=== PATIENT | female | born 1990 | race Hispanic/Latino ===

== ENCOUNTER 2019-05-10 17:52 | Day surgery (SDC) | payer OTHER ==
[2019-05-10 18:39] VITALS: BMI 32.4
--- NOTE | 2019-05-10 19:25 | PDOC.FPROB ---
FMR OB H&P: HPI - History of Present Illness Chief Complaint: Elevated BP at [facility] Indentification: History of Present Illness: Mrs. Castaneda is a 28 y/o at 36W GA who presents to L&D from [facility] because she had elevated blood pressures. She recorded several BP readings with the systolic pressures at 145, 136 and 137 mmHg earlier today, prompting her presentation to L&D. She is Lao-speaking only, so an geometry tutor had to be used for the majority of the evaluation. Mrs. Castaneda states that she has had Gestational Hypertension in the past, with her first child, but not with her second. In the intrapartum period, she thinks that she may have had high blood pressure then as well. She admits to a recent headaches, itchy eyes, and nasal congestion. and is concerned that she may have the flu. She denies a worsening headache, changes in vision, swelling in her hands or feet or feelings of numbness or tingling. She states that she can feel her baby moving appropriately , and she has not had any syncopal episodes, N/V/D, abdominal pain, dysuria, loss of fluid or bloody discharge. Primary Care Physician: Dr. Jose Guadalupe Mendez FMR OB H&P: Current - Care : 3 Para: 2 Gestational age: 36W Due date: 06/13/19 Dating Criteria: LMP, c/w 30.2US Total weight gain: 16 LBS - OB Labs Blood type: A RH: positive Antibody Screen: negative HIV: negative RPR: negative HepBsAg: negative Rubella: immune Quad screen: unknown Urine drug screen: not done Gonorrhea: negative Chlamydia: negative Pap Smear: Normal 1 hour gtt: 2 hr gtt normal. no elevater sugars A1c: 5.1 GBS: unknown H&H: hgb 11.5 on 04/21 Platelets: 219 on 04/21 Additional labs: 04/21 pr/cr ratio .142 03/31 24hr urine protein 231 TSH 2.1 - Additional Ultrasound Additional: 30.4 week sono- hadlock 60 percent. placenta posterior. done with [facility] 32.2 week visualized 4 chamber heart. everything else normal. 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 - Surgical History Sx History: Unable to obtain - Social History Social History: Denies x3. - Family History Family History: Unable to obtain FMR OB H&P: Medications - Current Home Medications: Medication Instructions Recorded Confirmed Type Aspirin [Ecotrin Low Strength] 1 tab PO DAILY 05/10/19 05/10/19 History Docosahexanoic Acid [ DHA] 1 tab PO DAILY 05/10/19 05/10/19 History Allergies/Adverse Reactions: Allergies Allergy/AdvReac Type Severity Reaction Status Date / Time No Known Allergies Allergy Unverified 05/10/19 18:41 FMR OB H&P: ROS - Review of Systems General: denies: fever/chills, night sweats Eyes: reports: others ("Itchy eyes"). denies: eye pain, vision changes ENT: reports: nasal congestion, sinus pain/pressure. denies: rhinorrhea, frequent nose bleed, ringing in ears, sore throat Cardiovascular: denies: chest pain, edema Respiratory: reports: congestion. denies: cough, shortness of breath Gastrointestinal: denies: abdominal pain, nausea, vomiting, diarrhea, constipation Genitourinary (Female): denies: dysuria, hematuria, polyuria, vaginal discharge , vaginal bleeding Musculoskeletal: denies: pain, arthritis/arthralgias Neurologic: denies: numbness, syncope, weakness FMR OB H&P: Vital Signs - Maternal Vital signs: HR (82) BP (135/81) RR (18) O2 (100% - Room) - Heart Tones Baseline: 145 Variability: moderate Acceleration: present Deceleration: absent FMR OB H&P: Physical Exam - Physical Exam General: NAD, awake, alert and oriented HEENT: normocephalic and atraumatic, PERRLA, EOMI, MMM, conjunctiva clear, no scleral icterus, grossly normal vision, grossly normal hearing, normal nasal mucosa, oropharynx clear, good dention Neck: supple, FROM, trachea midline, no LAD Chest: non-tender to palpation, no lesions Breast: symmetric, no nipple discharge Heart: RRR, normal S1/S2, no murmurs/rubs/gallops, pulses present, no edema General: CTAB, no respiratory distress, good air movement, no rales/rhonchi, no wheezing, no retractions Abdomen: gravid, non-tender, no masses Musculoskeletal: pulses present, FROM in all four extremities, no misalignment/ asymmetry, no atrophy Neurological: sensation to pain,touch and proprioception grossly normal, no tremor, no focal deficit Skin: no rash, no jaundice Lymphatic: no unusual bruising or bleeding, no purpura, no petechia, no LAD Psychiatric: intact recent and remote memory, good judgement and insight, normal mood and affect FMR OB H&P: A/P - Problem List (1) Gestational hypertension Current Visit: Yes Status: Acute Code(s): O13.9 - GESTATIONAL HTN W/O SIGNIFICANT PROTEINURIA, UNSP TRIMESTER (2) Intrauterine Current Visit: Yes Status: Acute Code(s): Z34.90 - ENCNTR FOR SUPRVSN OF NORMAL , UNSP, UNSP TRIMESTER Disposition: 1. Gestational Hypertension -Patient's recently elevated BP readings in the 140s are concerning - r/o Pre- Eclampsia -Patient admits to headaches, sinus congestion, watery eyes -Patient does not complain of visual disturbances, increased LE edema -Physical exam unremarkable, BP currently stable at 135/81 mmHg -CBC: Pending -CMP: Pending -Urine Protein / Cr Ratio: Pending -Influenza Antigen: Pending -Currently being monitored in L&D 2. Intrauterine -Recent decline in [place] percentiles concerning -BPP: Pending Code: Full Diet: NPO Activity: Bed Rest DVT PPx: Not Required Dispo: Observe patient in L&D for 4H with BP checks Q15M. Await lab results to assess for proteinuria and/or end-organ damage. DC home if BP < 160 mmHg. Expected LOS < 24H Discussion: Date/Time: 05/10/191922 This H&P was discussed with Dr. Webster PGY-3 and the attending, Dr. Napoles who agree with the above documentation and plan. At this time we ordered CBC, CMP, uric acid, urine pr/cr ratio. Will assess for any lab abnormalities. BPP ordered as well. Will monitor for 4 hours. Addendum - Attending - Attending Attestation Date/Time: 05/10/191957 I personally evaluated the patient and discussed the management with Dr. Gonzalez and Dr. Webster I agree with the History, Examination, Assessment and Plan documented above with any addition or exceptions noted below. Sent for evaluation of superimposed preeclampsia on cHTN. BP stable. No severe range over the course of 4.5 hours of monitoring. Only 3 mild range readings. Asymptomatic. Reactive NST. BPP 03/02. Platelets continue to downtend and therefore patient at risk for gthrombocytopenia. Continue to trend labs weekly. Continue daily BP monitoring. Has repeat growth next week. Noted to have decreased growth from 30 wks to 35 wks. ER precautions discussed. Patient has follow up appt at [facility] and with MFM next week. Ok to d/c to home. Paige
[2019-05-10] MEDS ORDERED: hydrALAZINE 20 MG/ML VIAL SLOW IVP PRN (19:34)
[2019-05-10 20:14] LABS: #Lymphocytes 2.2 thou/uL (1.20-3.40); #Monocytes 0.4 thou/uL (0.11-0.59); #Neutrophils 6.4 thou/uL (1.40-6.50); %Eosinophils 0.4 % (0.0-10.0); %Lymphocytes 23.8 % (21.0-51.0); %Monocytes 4.7 % (0.0-10.0); Hemoglobin 11.3 g/dL (12.0-16.0); Mean Corpuscular HGB CONC 34.6 g/dL (32.0-36.0); Mean Corpuscular Hemoglobin 29.2 pg (27.0-31.0); Mean Corpuscular Volume 84.5 fL (78.0-98.0); Mean Platelet Volume 10.8 fL (7.4-10.4); Platelet Count 166 thou/uL (130-400); RBC Distribution Width 14.6 % (11.5-14.5); Red Blood Cell (RBC) Count 3.85 mill/uL (4.20-5.40)
[2019-05-10 20:38] LABS: ALT (SGPT) 9 U/L (8-55); AST (SGOT) 15 U/L (5-34); Albumin 3.3 g/dL (3.5-5.0); Alkaline Phosphatase 159 U/L (40-110); Anion Gap 12 mmol/L (10-20); BUN (Urea Nitrogen) 7 mg/dL (7.0-18.7); Bilirubin, Total 0.2 mg/dL (0.2-1.2); Calc. Creatinine Clearance 160 mL/min (70-130); Calcium 8.9 mg/dL (7.8-10.44); Carbon Dioxide 21 mmol/L (22-29); Chloride 109 mmol/L (98-107); Estimated GFR-MDRD Greater than 90; Globulin 3.1 g/dL (2.4-3.5); Glucose 82 mg/dL (70-105); Potassium 3.9 mmol/L (3.5-5.1); Protein, Total 6.4 g/dL (6.0-8.3); Sodium 138 mmol/L (136-145)
[2019-05-10 20:40] LABS: Creatinine, Urine Less than 20.00 mg/dL (47-110); Protein, Urine Random Quant Less than 10 mg/dL (1-14)
--- NOTE | 2019-05-10 23:54 | ULT ---
BIOPHYSICAL PROFILE ULTRASOUND EXAM: 05/10/19 INDICATION: Hypertension. FINDINGS: Limited ultrasound of the fetus for purposes of biophysical profile evaluation reveals a score of 2 f or tone, breathing, movements and amniotic fluid with total biophysical profile score of 8/8. F etal cardiac activity documented at 128 beats per minute. IMPRESSION: Biophysical profile score, 8/8. POS: C
--- NOTE | 2019-05-11 00:59 | PDOC.OBAPN ---
FMR OB AP PN: Obj - Maternal Vital signs: BP: range from 130 to 140 - Heart Tones Baseline: 140 Variability: moderate Acceleration: present Deceleration: absent Category: category 1 [place] contractions every: Occasional FMR OB AP PN: Data - Labs Lab results: Laboratory Results - last 24 hr 05/10/19 05/10/19 05/10/19 19:58 19:58 20:15 WBC 9.0 RBC 3.85 L Hgb 11.3 L Hct 32.5 L MCV 84.5 MCH 29.2 MCHC 34.6 RDW 14.6 H Plt Count 166 MPV 10.8 H Neutrophils % 71.0 Lymphocytes % 23.8 Monocytes % 4.7 Eosinophils % 0.4 Basophils % 0.0 Neutrophils # 6.4 Lymphocytes # 2.2 Monocytes # 0.4 Eosinophils # 0.0 Basophils # 0.0 Sodium 138 Potassium 3.9 Chloride 109 H Carbon Dioxide 21 L Anion Gap 12 BUN 7 Creatinine 0.61 Estimated GFR (MDRD) Greater than 90 Glucose 82 Uric Acid 5.0 Calcium 8.9 Total Bilirubin 0.2 AST 15 ALT 9 Alkaline Phosphatase 159 H Serum Total Protein 6.4 Albumin 3.3 L Globulin 3.1 Albumin/Globulin Ratio 1.1 L U Random Total Protein Less than 10 Urine Creatinine Less than 20.00 L FMR OB AP PN: A/P - Problem List (1) Intrauterine Current Visit: Yes Status: Acute Code(s): Z34.90 - ENCNTR FOR SUPRVSN OF NORMAL , UNSP, UNSP TRIMESTER (2) Chronic hypertension Current Visit: Yes Status: Acute Code(s): I10 - ESSENTIAL (PRIMARY) HYPERTENSION Discussion: Date/Time: 05/11/197 Pt Plt 166, Cr .61, uric acid 5.0. urine protein less than 10. Urine cr less than 20. No severe range pressures. Only had a few pressures elevated to the 140 's. Cat 1 strip. FHR baseline 140. Occasional ctx noted. BPP 8/8. At this time pt had negative PIH workup. Will have f/u for routine PNC visits. Will continue to monitor BP. ER precautions discussed. Addendum - Attending - Attending Attestation Date/Time: 05/11/19 7929 I personally evaluated the patient and discussed the management with Dr. Gonzalez and Dr. Webster I agree with the History, Examination, Assessment and Plan documented above with any addition or exceptions noted below. No evidence of superimposed preE. Follow up with PNC and MFM next week. IOL at 38 to 39.6 wks. Due to poor growth and down trending platelets would suggest 38 wks. Paige
== END 2019-05-11 00:20 | disposition home or self-care (01) ==
LOC: L&D/OP 17:52
PROVIDERS: ATTEND Emergency Medicine
DX: O13.3 Gestational [pregnancy-induced] hypertension without significant proteinuria, third trimester (principal); Z3A.36 36 weeks gestation of pregnancy; Z79.82 Long term (current) use of aspirin
CPT/HCPCS: 36415; 76819; 80053; 82570; 84156; 84550; 85025; 87804; 99284

== ENCOUNTER 2019-05-23 18:07 | Inpatient (IN) | payer OTHER ==
[2019-05-23 18:43] VITALS: TEMP 98.6; BMI 27.6
[2019-05-23] MEDS ORDERED: NS / Oxytocin 40 units/1000ml 1,000 ML IV PRN (18:49)
[2019-05-23] MEDS ORDERED: Butorphanol Tartrate 1 MG/ML VIAL SLOW IVP PRN (18:49)
[2019-05-23] MEDS ORDERED: Promethazine HCl 25 MG/ML VIAL IM PRN (18:49)
[2019-05-23] MEDS ORDERED: Ondansetron PF 4 MG/2 ML Vial IVP PRN (18:49)
[2019-05-23] MEDS ORDERED: hydrALAZINE 20 MG/ML VIAL SLOW IVP PRN (18:49)
[2019-05-23] MEDS ORDERED: Lidocaine 1% (PF) 30 ML VIAL SC PRN (18:49)
--- NOTE | 2019-05-23 18:49 | PDOC.FPROB ---
FMR OB H&P: HPI - History of Present Illness Chief Complaint: Induction of Labor for Severe Range BP History of Present Illness: 28yo F at 37.0wks by LMP and 30.2wk cori presents from [facility] for induction of labor after being found to have severe range BP and BPP/NST of 6/ 8. Pt has a hx of cHTN and pre-e w/ previous delivery. Pt's home BP logs have all been WNL per [facility] records. Not currently jc. Denies vaginal bleeding , discharge, pain, or loss of fluid. Pt denies any vision changes, headache, increased swelling, or neuro sx. Primary Care Physician: Dr. 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 History: No hx of abnormal paps - Surgical History Sx History: None - Social History Social History: Denies any alcohol, drugs, or tobacco - Family History Family History: FHx of congenital cyanotic heart defect FMR OB H&P: Medications - Current Home Medications: Medication Instructions Recorded Confirmed Type Docosahexanoic Acid [ DHA] 1 tab PO DAILY 05/10/19 05/23/19 History Allergies/Adverse Reactions: Allergies Allergy/AdvReac Type Severity Reaction Status Date / Time No Known Allergies Allergy Verified 05/23/19 18:43 FMR OB H&P: ROS - Review of Systems General: denies: fever/chills, weight/appetite/sleep changes Eyes: denies: vision changes, double vision ENT: denies: nasal congestion, rhinorrhea Cardiovascular: denies: chest pain, edema Respiratory: denies: cough, shortness of breath Gastrointestinal: denies: abdominal pain, nausea, vomiting Genitourinary (Female): reports: vaginal pressure. denies: dysuria, vaginal discharge, vaginal pain, vaginal bleeding, contractions Neurologic: denies: numbness, weakness Integumentary: denies: itching, rash FMR OB H&P: Vital Signs - Maternal Vital signs: Vital Signs - First Documented Temp Pulse Resp BP 98.6 F 77 18 157/87 H 05/23/19 18:37 05/23/19 18:37 05/23/19 18:37 05/23/19 18:37 - Heart Tones Baseline: 145 Variability: moderate Acceleration: present Deceleration: absent Category: category 1 FMR OB H&P: Physical Exam - Physical Exam General: NAD, awake, alert and oriented HEENT: normocephalic and atraumatic, EOMI, grossly normal vision, grossly normal hearing Neck: FROM, no JVD Heart: RRR, normal S1/S2, no murmurs/rubs/gallops General: CTAB, no respiratory distress, good air movement Abdomen: soft, gravid, bowel sound present Musculoskeletal: pulses present, FROM in all four extremities Neurological: cranial nerves II through XII intact, no focal deficit Skin: no rash, good tugor, capillary refill <2 seconds Lymphatic: no unusual bruising or bleeding, no purpura Psychiatric: intact recent and remote memory, good judgement and insight - Pelvic Exam SVE: 08/14/- Fuentes score: 6 FMR OB H&P: A/P - Problem List (1) Late care affecting , antepartum Current Visit: Yes Status: Acute Code(s): O09.30 - SUPRVSN OF PREG W INSUFFICIENT ANTENAT CARE, UNSP TRIMESTER (2) Encounter for induction of labor Current Visit: Yes Status: Acute Code(s): Z34.90 - ENCNTR FOR SUPRVSN OF NORMAL , UNSP, UNSP TRIMESTER (3) Pre-eclampsia during in third trimester, antepartum Current Visit: Yes Status: Acute Code(s): O14.93 - UNSPECIFIED PRE-ECLAMPSIA , THIRD TRIMESTER (4) Chronic hypertension Current Visit: No Status: Acute Code(s): I10 - ESSENTIAL (PRIMARY) HYPERTENSION (5) Intrauterine Current Visit: No Status: Acute Code(s): Z34.90 - ENCNTR FOR SUPRVSN OF NORMAL , UNSP, UNSP TRIMESTER Disposition: Pre-Eclampsia - Induction of Labor - Severe range pressures and urine pr/cr ratio of 2.15 - Cytotec induction, pitocin once cervix is favorable - Labetalol 20 now and prn for SBP > 160 - Currently asx - Start mg w/ q3hr checks Discussion: Date/Time: 05/23/19 8875 This H&P was discussed with Dr. Mendez and Dr. Mohamud who agree with the above documentation and plan. Signature: Edward Coulter D.O. PGY1 Addendum - Attending - Attending Attestation Date/Time: 05/24/19 0792 I personally evaluated the patient and discussed the management with team on . See my note. I agree with the History, Examination, Assessment and Plan documented above with any addition or exceptions noted below.
[2019-05-23] MEDS: Lactated Ringer's 1,000 ML IV SCH (19:01)
[2019-05-23 19:13] LABS: Hemoglobin 11.2 g/dL (12.0-16.0); Mean Corpuscular HGB CONC 35.1 g/dL (32.0-36.0); Mean Corpuscular Hemoglobin 29.5 pg (27.0-31.0); Mean Corpuscular Volume 83.9 fL (78.0-98.0); Mean Platelet Volume 11.4 fL (7.4-10.4); Platelet Count 154 thou/uL (130-400); RBC Distribution Width 14.7 % (11.5-14.5); White Blood Cell (WBC) Count 9.1 thou/uL (4.8-10.8)
[2019-05-23] MEDS ORDERED: Labetalol HCl 100 MG/20 ML VIAL SLOW IVP PRN (19:39)
[2019-05-23] MEDS ORDERED: Calcium Gluc 4.6 MEQ/10 ML (100 MG/ML) SLOW IVP PRN (19:41)
[2019-05-23 19:45] LABS: #Lymphocytes 2.1 thou/uL (1.20-3.40); #Monocytes 0.4 thou/uL (0.11-0.59); #Neutrophils 6.3 thou/uL (1.40-6.50); %Basophils 0.4 % (0.0-1.0); %Eosinophils 0.1 % (0.0-10.0); %Lymphocytes 23.8 % (21.0-51.0); %Monocytes 4.4 % (0.0-10.0); %Neutrophils 71.3 % (42.0-75.0); Hemoglobin 11.3 g/dL (12.0-16.0); Mean Corpuscular HGB CONC 35.5 g/dL (32.0-36.0); Mean Corpuscular Hemoglobin 29.7 pg (27.0-31.0); Mean Corpuscular Volume 83.7 fL (78.0-98.0); Mean Platelet Volume 11.5 fL (7.4-10.4); Platelet Count 154 thou/uL (130-400); RBC Distribution Width 14.8 % (11.5-14.5); Red Blood Cell (RBC) Count 3.81 mill/uL (4.20-5.40); White Blood Cell (WBC) Count 8.9 thou/uL (4.8-10.8)
[2019-05-23] MEDS ORDERED: Magnesium Sulfate 20 GM/WATER 500 ML BAG IVPB SCH (19:45)
[2019-05-23 19:51] LABS: Syphilis Antibody Nonreactive (Nonreactive); Syphilis Antibody Index 0.06 S/CO (<1.00 Non-Reactive)
[2019-05-23 19:52] LABS: HBSAg Index 0.12 S/CO (0-0.99); Hep B Surf Ag Non-Reactive S/CO (NonReactive)
[2019-05-23] MEDS ORDERED: Misoprostol 100 MCG TAB VAG SCH (20:00)
[2019-05-23 20:11] LABS: ALT (SGPT) 11 U/L (8-55); AST (SGOT) 16 U/L (5-34); Albumin 3.2 g/dL (3.5-5.0); Alkaline Phosphatase 157 U/L (40-110); Anion Gap 12 mmol/L (10-20); BUN (Urea Nitrogen) 9 mg/dL (7.0-18.7); Bilirubin, Total 0.2 mg/dL (0.2-1.2); Calc. Creatinine Clearance 155 mL/min (70-130); Calcium 8.4 mg/dL (7.8-10.44); Carbon Dioxide 20 mmol/L (22-29); Chloride 109 mmol/L (98-107); Estimated GFR-MDRD Greater than 90; Globulin 2.7 g/dL (2.4-3.5); Potassium 3.8 mmol/L (3.5-5.1); Protein, Total 5.9 g/dL (6.0-8.3); Sodium 137 mmol/L (136-145)
[2019-05-23 20:14] LABS: Glucose 58 mg/dL (70-105)
[2019-05-23] MEDS: Magnesium Sulfate 20 gm/500 ml 20 GM/500 ML BAG IVPB SCH (20:17)
[2019-05-23 20:18] VITALS: BP 163/86
[2019-05-23 21:22] LABS: Creatinine, Urine 27.57 mg/dL (47-110)
--- NOTE | 2019-05-23 23:48 | PDOC.EVN ---
Event Note - Event Note Event Note: Ms. Dia is a 28 y/o multipara @ 37w0d dated by LMP c/w 3T sono who presented LTC with gHTN vs cHTN. She has been followed by [facility] and in [place]T today I received a call from Jim [facility] that she had severe pressures and a BPP of 6/ 8 and they recommended delivery. She is doing well, denies mariscal/vision changes/meq or ruq pain. +FM, denies ctx/ lof/vb. Her exam is significant for severe range BP's. Her DTRs are very brisk and she has 2-3 beat clonus. Her labs have been reviewed and reveal an elevated p/c ratio. We have called [facility] and she is GBS negative FHT's cat 1 Rare ctx See Resident note for SVE 28 y/o multip @ 37w with cHTN with superimposed preeclampsia with severe features LTC Suboptimal dates Nonreassuring APT 1. Labetalol 20 mg IV x 1 now 2. Begin mag with susbsequent mg checks, seizure precautions, neurochecks 3. cytotec 25 mcg PV for ripening, likely pitocin in 3-4 hours 4. I discussions r/b/i of and PLTCS and she voiced understanding and desired to proceed. 5. Anticipate For additional details see resident note. Flaquita Mendez MD
--- NOTE | 2019-05-24 00:34 | PDOC.LDPN ---
Labor & Delivery Progress Note - Subjective Subjective: comfortable - Objective Vital signs reviewed and normal: yes General: NAD Uterine fundus: non tender SVE: 2/40/-2 FHT: category 1, variability present [place] contractions every: 5 - Assessment (1) Pre-eclampsia during in third trimester, antepartum Code(s): O14.93 - UNSPECIFIED PRE-ECLAMPSIA, THIRD TRIMESTER Current Visit: Yes Status: Acute (2) Chronic hypertension Code(s): I10 - ESSENTIAL (PRIMARY) HYPERTENSION Current Visit: No Status: Acute (3) Encounter for induction of labor Code(s): Z34.90 - ENCNTR FOR SUPRVSN OF NORMAL , UNSP, UNSP TRIMESTER Current Visit: Yes Status: Acute Plan: labor augmentation -: Induction of labor - 2nd dose of cytotec 25 - cervix continues to be favorable - will start pitocin after next check if pt continues to make change Pre-eclampsia - received single dose of labetalol - pressures remaining stable at this time - neuro-mg check without any significant findings - normal heart, lung, DTR, urine output (450ml since administration 4 hr ago) Addendum - Attending - Attending Attestation Date/Time: 05/24/19 0259 I personally evaluated the patient and discussed the management with Dr. Coulter. I agree with the History, Examination, Assessment and Plan documented above with any addition or exceptions noted below. Continue mag, bp checks, neurochecks and seizure precautions.
[2019-05-24] MEDS ORDERED: Misoprostol 100 MCG TAB ONE ×2 (00:39→00:41)
[2019-05-24] MEDS ORDERED: Misoprostol 100 MCG TAB VAG SCH (00:45)
--- NOTE | 2019-05-24 04:45 | PDOC.LDPN ---
Labor & Delivery Progress Note - Subjective Subjective: comfortable - Objective Vital signs reviewed and normal: yes General: NAD, resting, breathing through contractions Dilation: 3 Effacement: 50% Station: -2 FHT: category 1 [place] contractions every: 6-7 - Assessment (1) Late care affecting , antepartum Code(s): O09.30 - SUPRVSN OF PREG W INSUFFICIENT ANTENAT CARE, UNSP TRIMESTER Current Visit: Yes Status: Acute (2) Encounter for induction of labor Code(s): Z34.90 - ENCNTR FOR SUPRVSN OF NORMAL , UNSP, UNSP TRIMESTER Current Visit: Yes Status: Acute (3) Pre-eclampsia during in third trimester, antepartum Code(s): O14.93 - UNSPECIFIED PRE-ECLAMPSIA, THIRD TRIMESTER Current Visit: Yes Status: Acute (4) Chronic hypertension Code(s): I10 - ESSENTIAL (PRIMARY) HYPERTENSION Current Visit: No Status: Acute (5) Intrauterine Code(s): Z34.90 - ENCNTR FOR SUPRVSN OF NORMAL , UNSP, UNSP TRIMESTER Current Visit: No Status: Acute Plan: continue plan of care, labor augmentation, pitocin for augmentation -: Induction of labor for Pre-Eclampsia - Mg check: appropriate urine output, DTR nml, asx - BP remaining stable, 140/92 - continue to monitor - Making slow cervical change after cytotec x2 - Fuentes 7 - Will initiate pitocin augmentation and otherwise continue plan of care
[2019-05-24] MEDS: Magnesium Sulfate 20 gm/500 ml 20 GM/500 ML BAG IVPB SCH ×2 (05:12→23:38)
[2019-05-24] MEDS: Lactated Ringer's 1,000 ML IV SCH ×2 (05:14→19:32)
[2019-05-24] MEDS ORDERED: NS w/ Oxytocin 10 units 500 ML IV SCH (06:00)
--- NOTE | 2019-05-24 08:33 | PDOC.EVN ---
Event Note - Event Note Event Note: Patient doing well. Cervical check at 0630 was 3/50/-2, pit was started at 12. Category 1 strip, ctx q2-4min. Mag check @ 7am shows DTRs reactive. Patient having some pain, but resting in bed. Next check at 1030.
[2019-05-24] MEDS ORDERED: Milk Of Magnesia 30 ML UDCUP PO PRN (11:00)
[2019-05-24] MEDS ORDERED: Ondansetron PF 4 MG/2 ML Vial IVP PRN (11:00)
[2019-05-24] MEDS ORDERED: Preparation H Ointment 28 GM TUBE PR PRN (11:00)
[2019-05-24] MEDS ORDERED: Bisacodyl 10 MG SUPP PR PRN (11:00)
[2019-05-24] MEDS ORDERED: hydrALAZINE 20 MG/ML VIAL SLOW IVP PRN (11:00)
[2019-05-24] MEDS ORDERED: Promethazine HCl 25 MG/ML VIAL IM PRN (11:00)
[2019-05-24] MEDS ORDERED: Misoprostol 200 MCG TAB VAG PRN (11:00)
[2019-05-24] MEDS ORDERED: NS / Oxytocin 40 units/1000ml 1,000 ML IV SCH (11:00)
[2019-05-24] MEDS ORDERED: Lanolin Ointment 7 GM TUBE TOP PRN (11:00)
--- NOTE | 2019-05-24 11:47 | PDOC.OPDEL ---
OB Operative/Delivery Note - Additional Findings/Plan Compilations/Other Findings: Vaginal Delivery Dictation Guideline Delivering Physician: Lilo Mccrary Schmidt Attending: Brad Procedure: Precipitous Spontaneous Vaginal Delivery Anesthesia: none EBL: 200 ml Pre-op Diagnosis: 1. term mIOL for pre-E with severe features superimposed on cHTN 2. Late to care Post-op Diagnosis: 1. Term intrauterine , delivered 2. same as above Indications: A 28y/o female presents to L&D for medical induction due to pre-E with severe features superimposed on cHTN Delivery Note: This is 28yo F @ 37.1wks by lmp c/w 30.2wk sono who delivered a viable M precipitously at 1004. Family Medicine Team was paged at approximately 0940 and per nursing patient was 5cm dilated and had a few variables that resolved by placing the patient in hands/knees presentation. Pitocin was stopped at that time per the nursing protocol. As family medicine team was walking toward L&D to evaluate the strip and check on the patient, the team was paged again at approximately 10:02. Upon walking into the patient's room a male infant had already delivered precipitously onto the bed with time of 10:04. Nuchal cord x2 which was reduced by nursing staff. was being stimulated as the Family Medicine team entered the room. Residents cut and clamped cord and cord blood collected. Baby was immediately dried and transitioned to the warmer, where he was evaluated by Dr. Wells from neonatology and found to have Apgars 9/9 at 1 & 5 minutes, with no concerns. Placenta delivered spontaneously, intact in the Kang presentation with a 3 vessel cord noted and discarded. Fundal massage was performed and the fundus was firm. The cervix and vagina were inspected and found to be free of lacerations. After evaluation, was transitioned to mom for [id number] and then went to the nursery for routine care. Patient tolerated delivery well and went to after routine recovery/care.
[2019-05-24] MEDS ORDERED: Acetaminophen 325 MG TAB PO PRN (12:33)
[2019-05-24] MEDS ORDERED: Acetaminophen 325 MG TAB PO SCH (12:45)
--- NOTE | 2019-05-24 17:02 | PDOC.EVN ---
Event Note - Event Note Event Note: 05/24/2019 at 15:00 Subjective: Patient states she is feeling tired, but otherwise doing well. She states lochia is minimal. She denies any shortness of breath, chest pain, swelling, or abdominal pain. She was having abdominal cramping which was relieved with ibuprofen. Objective: BP high to 153/72 General: Alert and oriented : Urine output > 30 mL/hr Ext: No edema Neuro: DTR's 2+ A/P: Pre-E with severe features superimposed on cHTN. Patient doing well. BP high to 153/72. Not requiring PRN medications. Continue Mg for 24h post-delivery. Continue magnesium checks. Addendum - Attending - Attending Attestation Date/Time: 05/24/19 1600 I personally evaluated the patient and discussed the management with Dr. Nagy I agree with the History, Examination, Assessment and Plan documented above with any addition or exceptions noted below. I personally evaluated the patient at approximately 1600 on 05/24. Patient had no severe features. Denied headache, scotoma, CP, or SOB. Patient states she was feeling tired. Urine output appropriate per nursing report. Plan to continue magnesium for 24 hr total after delivery. Case proctored by Dr. Jose Guadalupe Mendez.
[2019-05-24] MEDS: Ferrous Sulfate 325 MG TAB PO SCH (19:32)
[2019-05-24] MEDS: Ibuprofen 800 MG TAB PO SCH ×3 (19:32→23:38)
[2019-05-24] MEDS: Docusate Calcium (SURFAK) 240 MG CAP PO SCH (23:26)
--- NOTE | 2019-05-25 03:45 | PDOC.EVN ---
Event Note - Event Note Event Note: BP: 137/81 No complaints Urine output > 30 mL/hr Neuro: DTR's 2+ A/P: Pre-E with severe features superimposed on cHTN. Patient doing well. Not requiring PRN medications. Continue Mg for 24h post- delivery. Continue magnesium checks.
--- NOTE | 2019-05-25 03:47 | PDOC.EVN ---
Event Note - Event Note Event Note: BP: 119/71 No complaints, resting comfortably Urine output > 30 mL/hr Neuro: DTR's 2+ A/P: Pre-E with severe features superimposed on cHTN. Patient doing well. Not requiring PRN medications. Continue Mg for 24h post- delivery. Continue magnesium checks.
--- NOTE | 2019-05-25 03:48 | PDOC.EVN ---
Event Note - Event Note Event Note: BP: 125/81 Resting, notes mild abdominal pain Urine output > 30 mL/hr Neuro: DTR's 2+ A/P: Pre-E with severe features superimposed on cHTN. Patient doing well. Not requiring PRN medications. Continue Mg for 24h post- delivery. Continue magnesium checks.
--- NOTE | 2019-05-25 05:33 | PDOC.PP ---
Post Progress Note Post Day #: 1 Subjective: Patient doing well this morning. Reports that her abdominal pain is much better , improved with ibp. She reports of mild lochia. Has not ambulated much due to her legs feeling heavy, likely due to mag. Is passing flatus, no BM yet. DTRs overnight have all been 2+. No concerns and agreeable with current plan of care at this time. PO intake tolerated: yes Flatus: yes Weight Weight 75.296 kg BPs 120s-130s/70s-80s on strip - Physical Examination General: NAD Cardiovascular: no m/r/g, RRR Respiratory: clear to auscultation bilaterally, non-labored breathing Abdominal: + bowel sounds, lochia, no distention, appropriately TTP Extremities: negative homans (B) Skin: no rash Neurological: no gross focal deficits Psychiatric: A&Ox3, normal affect Result Diagrams: 05/23/19 19:03 05/23/19 19:36 Additional Labs: Post Labs Blood Type A POSITIVE 05/23/19 19:36 Hep Bs Antigen Non-Reactive S/CO (NonReactive) 05/23/19 19:03 (1) Pre-eclampsia, delivered Code(s): O14.94 - UNSPECIFIED PRE-ECLAMPSIA, COMPLICATING CHILDBIRTH Status: Acute (2) Status: Acute - Assessment/Plan 28yo G3 now P3 delivered a viable FRANKIEA M via precipitous on 05/24 @ 1004am #PPD 1 -mild lochia -abdominal pain controlled with ibp -uterus is firm, below the level of the umbilicus -will follow up with PNC in 2 weeks, discussed pelvic rest for 6 weeks -24hrs mag pp for pre-e with reflex checks q4h, last check @ 0645 DTRs 2+ -BP on strip 120s-130s/70s-80s -d/c mag at 24hr (~10am today), d/c gonzalez today -patient is passing flatus, has not yet had a bm. Has not ambulated much 2/2 her legs feeling heavy -will encourage ambulation today after d/c of mag/gonzalez -does not desire circ for baby; baby will f/u with Dr. Lutz -desires contraception, and will f/u at pp appt for contraception counseling Dispo: ppd 1, mag for 24hr post-delivery for pre-e, d/c gonzalez and encourage ambulation today Addendum - Attending - Attending Attestation Date/Time: 05/25/19 5298 I personally evaluated the patient and discussed the management with Dr. Mccrary. I agree with the History, Examination, Assessment and Plan documented above with any addition or exceptions noted below.
[2019-05-25] MEDS: Ibuprofen 800 MG TAB PO SCH ×3 (06:56→22:55)
[2019-05-25] MEDS: Prenatal Vitamin 1 TAB PO SCH (09:09)
[2019-05-25] MEDS: Ferrous Sulfate 325 MG TAB PO SCH ×2 (09:09→18:36)
[2019-05-25] MEDS: Docusate Calcium (SURFAK) 240 MG CAP PO SCH ×2 (09:10→22:55)
[2019-05-25] MEDS ORDERED: Adacel (T-DAP) 0.5 ML SYRINGE IM ONE (11:00)
[2019-05-26 03:20] LABS: Hemoglobin 10.5 g/dL (12.0-16.0); Mean Corpuscular HGB CONC 32.8 g/dL (32.0-36.0); Mean Corpuscular Hemoglobin 28.7 pg (27.0-31.0); Mean Corpuscular Volume 87.6 fL (78.0-98.0); Mean Platelet Volume 9.9 fL (7.4-10.4); Platelet Count 194 thou/uL (130-400); RBC Distribution Width 15.2 % (11.5-14.5); Red Blood Cell (RBC) Count 3.64 mill/uL (4.20-5.40); White Blood Cell (WBC) Count 11.9 thou/uL (4.8-10.8)
--- NOTE | 2019-05-26 05:24 | PDOC.PP ---
Post Progress Note Post Day #: 2 Subjective: Patient doing well this morning. Ambulating, has had a BM. Minimal lochia, minimal abdominal pain. Discussed with patient that her baby is still under phototherapy for hyperbilirubinemia, patient agreeable to plan of care. Patient agreeable to being discharged to bed & breakfast until her baby is ready to go home. PO intake tolerated: yes Flatus: yes Ambulation: yes Weight Weight 75.296 kg - Physical Examination General: NAD Cardiovascular: no m/r/g, RRR Respiratory: clear to auscultation bilaterally, non-labored breathing Abdominal: + bowel sounds, lochia, no distention, appropriately TTP Extremities: negative homans (B) Skin: no rash Neurological: no gross focal deficits Psychiatric: A&Ox3, normal affect Result Diagrams: 05/26/19 03:08 05/23/19 19:36 Additional Labs: Post Labs Blood Type A POSITIVE 05/23/19 19:36 Hep Bs Antigen Non-Reactive S/CO (NonReactive) 05/23/19 19:03 (1) Pre-eclampsia, delivered Code(s): O14.94 - UNSPECIFIED PRE-ECLAMPSIA, COMPLICATING CHILDBIRTH Status: Acute (2) Status: Acute - Assessment/Plan 28yo G3 now P3 delivered a viable TAGA M via precipitous on 05/24 @ 1004am #PPD 2 -mild lochia -abdominal pain controlled with ibp -uterus is firm, below the level of the umbilicus -will follow up with PNC in 2 weeks, discussed pelvic rest for 6 weeks -mag was turned off at 1000 yesterday, patient doing well today -patient is passing flatus, has had BM. -ambulating well -does not desire circ for baby; baby will f/u with Dr. Lutz -desires contraception, and will f/u at appt for contraception counseling Dispo: d/c today with f/u at [facility] in 2 weeks Addendum - Attending - Attending Attestation Date/Time: 05/26/19 1110 I personally evaluated the patient and discussed the management with Dr. Mccrary. I agree with the History, Examination, Assessment and Plan documented above with any addition or exceptions noted below. Stable for discharge.
[2019-05-26] MEDS: Ibuprofen 800 MG TAB PO SCH (05:57)
[2019-05-26] MEDS: Lactated Ringer's 1,000 ML IV SCH (08:39)
[2019-05-26] MEDS: Ferrous Sulfate 325 MG TAB PO SCH (08:39)
[2019-05-26] MEDS: Prenatal Vitamin 1 TAB PO SCH (08:39)
== END 2019-05-26 10:20 | disposition home or self-care (01) | DRG 807 ==
LOC: L&D 18:07
PROVIDERS: ADMIT Emergency Medicine; ATTEND Emergency Medicine
PROC: 10907ZC Drainage of Amniotic Fluid, Therapeutic from Products of Conception, Via Natural or Artificial Opening (ICD-10-PCS; principal; 2019-05-24)
PROC: 10E0XZZ Delivery of Products of Conception, External Approach (ICD-10-PCS; 2019-05-24)
PROC: 3E0P7VZ Introduction of Hormone into Female Reproductive, Via Natural or Artificial Opening (ICD-10-PCS; 2019-05-24)
PROC: 3E033VJ Introduction of Other Hormone into Peripheral Vein, Percutaneous Approach (ICD-10-PCS; 2019-05-24)
DX: O14.14 Severe pre-eclampsia complicating childbirth (principal); Z37.1 Single stillbirth; O10.02 Pre-existing essential hypertension complicating childbirth; O76 Abnormality in fetal heart rate and rhythm complicating labor and delivery; O62.3 Precipitate labor; O69.81X0 Labor and delivery complicated by cord around neck, without compression, not applicable or unspecified; Z3A.37 37 weeks gestation of pregnancy
CPT/HCPCS: 36415; 80053; 82570; 84156; 85027; 86780; 86850; 86900; 86901; 87340; 90715; J2405; J2590; J3475